=== PATIENT | male | born 1985 | race Caucasian/White ===

== ENCOUNTER 2017-10-21 18:52 | Emergency (ER) | payer SELFPAY ==
[~2017-10-21] VITALS: Ht 170.1 cm; Wt 87.5 kg
[2017-10-21] MEDS ORDERED: NORCO 5-325 TA1 EACH PO (20:08)
== END 2017-10-21 19:16 | disposition home or self-care (01) ==
LOC: ED 18:52
DX: R07.81 Pleurodynia (principal); V10.0XXA Pedal cycle driver injured in collision with pedestrian or animal in nontraffic accident, initial encounter; Y93.55 Activity, bike riding; Y92.413 State road as the place of occurrence of the external cause; Y99.9 Unspecified external cause status

== ENCOUNTER → 2017-11-14 | Outpatient (CLI) | payer SELFPAY ==
[~2017-11-14] MED LIST: NORCO 5-325 TA1 EACH PO
[2017-11-14 15:24] LABS: BASO % 0.2 % (0.0-1.0); EOS # 0.1 10*3/uL (0.0-0.4); EOS % 0.9 % (1.0-4.0); HEMATOCRIT 46.6 % (42.0-52.0); HEMOGLOBIN 15.9 g/dl (14.0-18.0); LYMPH # 2.3 10*3/uL (1.3-4.4); LYMPH % 18.2 % (27.0-41.0); MEAN CELL VOLUME 88.3 fl (80.0-94.0); MEAN CORPUSCULAR HGB 30.1 pg (27.0-31.0); MEAN CORPUSCULAR HGB CONC 34.1 g/dl (33.0-37.0); MEAN PLATELET VOLUME 11.3 fl (9.6-12.3); MONO # 0.6 10*3/uL (0.1-1.0); MONO % 4.4 % (3.0-9.0); NEUT # 9.5 10*3/uL (2.3-7.9); PLATELET COUNT AUTOMATED 285 10*3/uL (130-400); RED BLOOD COUNT 5.28 10*6/uL (4.50-5.90); RED CELL DISTRI WIDTH 11.9 % (0-14.5); WHITE BLOOD COUNT 12.5 10*3/uL (4.8-10.8)
[2017-11-14 15:29] LABS: ALBUMIN 4.4 gm/dl (3.1-4.5); BUN 11 mg/dl (7-24); CHLORIDE 103 mmol/L (98-107); CREATININE 0.95 mg/dL (0.70-1.30); POTASSIUM 3.3 mmol/L (3.5-5.1); SGOT/AST 21 IU/L (3-35); SGPT/ALT 48 U/L (12-78); SODIUM 140 mmol/L (136-145); TOTAL PROTEIN 8.1 gm/dL (6.4-8.2)
[2017-11-14 15:37] LABS: ALKALINE PHOSPHATASE 100 U/L (45-117); T3 UPTAKE 34 % (31-39); THYROID STIM HORMONE (HS) 0.663 uIU/ml (0.358-4.75)
[2017-11-15 06:14] LABS: FOLLICLE STIMULATING HORMONE 3.8 mIU/mL (1.5-12.4); LUTEINIZING HORMONE 004283 3.3 mIU/mL (1.7-8.6); PROGESTERONE 004317 0.2 ng/mL (0.0-0.5); PROLACTIN 004465 12.7 ng/mL (4.0-15.2)
== END | disposition home or self-care (01) ==
LOC: LAB 13:59
PROVIDERS: Nurse Practitioner Family
DX: R53.83 Other fatigue (principal)

== ENCOUNTER → 2020-09-28 | Outpatient (CLI) | payer OTHER ==
[2020-09-29 07:06] LABS: HEP B CORE AB TOTAL Negative (Negative); HEPATITIS B SURFACE AB Reactive (.); HEPATITIS B SURFACE AG Negative (Negative)
[2020-10-01 05:06] LABS: TB1 Ag VALUE 0.03 IU/mL (.)
== END | disposition home or self-care (01) ==
LOC: LAB 16:36
PROVIDERS: ATTEND Dermatology
DX: L40.0 Psoriasis vulgaris (principal); Z79.899 Other long term (current) drug therapy